=== PATIENT | male | born 1980 | race Caucasian/White ===

== ENCOUNTER 2016-08-03 20:00 | Emergency (ER) | payer BC ==
--- NOTE | ~2016-08-03 | CR18 ---
[facility] A Service of [facility] RADIOLOGY TEXT RESULTS PATIENT: MARGIE PHOENIX LOCATION: SED : 78 UNIT #: [id number] AGE: [address]: Kat Olivarez SEX: M ORDER DR: [id number] [place] [id number] E MR#: [id number] Acc #: [id number] NAME: MARGIE PHOENIX : 1980 SEX: M STUDY DATE/TIME: 08/03/2016 19:57 UNIT: SED ROOM: STUDY DESCRIPTION: CR Ankle 2 Views Rt Attending Physician: Kat Olivarez Pa-C Ordering Physician: Physician Non-Staff MEDICAL IMAGING REPORT This report is preliminary unless electronic signature is present. EXAM Right ankle 2 views, 08/03/2016 1957 hours. CLINCIAL HISTORY 2-day history of pain and swelling. Patient woke up with swelling. No reported injury. COMPARISON None. FINDINGS AP and lateral views demonstrate subcutaneous edema over the lower leg and ankle medially and laterally. There is no fracture, dislocation or foreign body. IMPRESSION Subcutaneous edema over the lower leg and ankle greater medially than laterally. No underlying fracture, dislocation or degenerative change. Dictated by... Blanca Marte M.D. THIS IS AN ELECTRONICALLY VERIFIED REPORT Blanca Marte M.D. at 08/04/2016 9:29 AM Andrew TD: 08/04/2016 00:17 JOB #: [id number] MEDICAL IMAGING REPORT [facility] A Service of [facility] RADIOLOGY TEXT RESULTS PATIENT: MARGIE PHOENIX LOCATION: SED : 78 UNIT #: [id number] AGE: [address]: Kat Olivarez SEX: M ORDER DR: Page 1 of 1
== END 2016-08-03 20:50 | disposition home or self-care (01) ==
LOC: SED 20:00
DX: S93.401A Sprain of unspecified ligament of right ankle, initial encounter (principal); Y93.01 Activity, walking, marching and hiking
CPT/HCPCS: 29540; 73600; 99283